=== PATIENT | male | born 1960 | race Caucasian/White ===

== ENCOUNTER 2022-07-31 12:53 | Observation (INO) ==
[2022-07-31] MEDS ORDERED: PEG 3000 GI LAVAGE 1 GALLON PO ONE ×2 (13:19→13:40)
[2022-07-31] MEDS ORDERED: Ondansetron 4 mg VIAL 2 MG/ML 2 ml VIAL IV ONE (13:20)
[2022-07-31 13:37] LABS: ABS Lymphocytes 0.9 10^3/ul (1.0-4.8); ABS Monocytes 0.6 10^3/ul (0-0.8); ABS Neutrophils 11.6 10^3/ul (1.5-7.7); Eosinophil % 0.3 %; Hematocrit 39 % (42-52); Lymphocyte % 6.9 %; Mean Corpuscular HGB Conc 34 g/dL (31-36); Mean Corpuscular Hemoglobin 29 pg (27-31); Mean Corpuscular Volume 86 fL (80-94); Mean Platelet Volume 7.3 fL (7.4-10.4); Platelet Count 254 10^3/uL (150-450); Red Blood Count 4.48 10^6 /uL (4.18-5.48); Red Cell Distribution Width 13 % (10-15); White Blood Count 13.2 10^3/uL (3.5-10.8)
[2022-07-31 14:12] LABS: Albumin 3.9 g/dL (3.2-5.2); Albumin/Globulin Ratio 2.4 (1-3); Calcium 8.6 mg/dL (8.6-10.3); Creatinine, Serum 0.85 mg/dL (0.67-1.17); Globulin 1.6 g/dL (2-4); Potassium 4.4 mmol/L (3.5-5.0); Total Bilirubin 0.9 mg/dL (0.2-1.0); Total Protein 5.5 g/dL (6.4-8.9); eGFR CKD-EPI 98.2 (>60)
[2022-07-31 14:24] LABS: INR 1.09 (0.88-1.18)
[2022-07-31] MEDS ORDERED: Lactated Ringers 1000 ml BAG 1,000 ML IV ONE ×2 (14:57→17:37)
[2022-07-31] MEDS ORDERED: Ondansetron 4 mg VIAL 2 MG/ML 2 ml VIAL IV PRN (16:20)
[2022-07-31] MEDS ORDERED: Midazolam 10 mg/10 ml VIAL 1 mg/ml 10 ml VIAL (10 mg) ONE (17:06)
[2022-07-31] MEDS ORDERED: fentaNYL 100 mcg/2 ml 50 MCG/ML VIAL ONE (17:07)
[2022-07-31] MEDS ORDERED: fentaNYL 100 mcg/2 ml 50 MCG/ML VIAL IV SLOW PU ONE (17:37)
[2022-07-31] MEDS ORDERED: Midazolam 10 mg/10 ml VIAL 1 mg/ml 10 ml VIAL (10 mg) IV SLOW PU ONE (17:37)
[2022-07-31] MEDS ORDERED: Pantoprazole VIAL 40 MG VIAL IV ONE (18:28)
[2022-07-31] MEDS ORDERED: Albuterol HFA INHALER 8 gm MDI INH PRN (18:55)
[2022-07-31] MEDS ORDERED: Pantoprazole 80 mg in NS BAG 80 MG/250 ML BAG IV SCH (19:00)
[2022-07-31] MEDS ORDERED: Iohexol 350 (CONTRAST) 500 ML MDV IV ONE (19:15)
[2022-07-31 20:29] LABS: Hematocrit 33 % (42-52); Hemoglobin 11.6 g/dL (14.0-18.0)
[2022-07-31] MEDS: Lactated Ringers 1000 ml BAG 1,000 ML IV SCH (23:12)
[2022-08-01 01:09] LABS: Hematocrit 32 % (42-52); Hemoglobin 11.2 g/dL (14.0-18.0)
[2022-08-01 06:48] LABS: ABS Eosinophils 0.1 10^3/ul (0-0.6); ABS Lymphocytes 1.3 10^3/ul (1.0-4.8); ABS Monocytes 0.8 10^3/ul (0-0.8); ABS Neutrophils 6.3 10^3/ul (1.5-7.7); Eosinophil % 1.3 %; Hematocrit 32 % (42-52); Hemoglobin 11.3 g/dL (14.0-18.0); Lymphocyte % 15.1 %; Mean Corpuscular HGB Conc 36 g/dL (31-36); Mean Corpuscular Hemoglobin 31 pg (27-31); Mean Corpuscular Volume 86 fL (80-94); Mean Platelet Volume 7.6 fL (7.4-10.4); Platelet Count 215 10^3/uL (150-450); Red Blood Count 3.69 10^6 /uL (4.18-5.48); Red Cell Distribution Width 14 % (10-15); White Blood Count 8.5 10^3/uL (3.5-10.8)
[2022-08-01 06:56] LABS: Calcium 8.5 mg/dL (8.6-10.3); Creatinine, Serum 0.82 mg/dL (0.67-1.17); Potassium 4.1 mmol/L (3.5-5.0); eGFR CKD-EPI 99.3 (>60)
[2022-08-01] MEDS: Lactated Ringers 1000 ml BAG 1,000 ML IV SCH (07:17)
[2022-08-01] MEDS ORDERED: Pantoprazole VIAL 40 MG VIAL IV SCH (09:00)
[2022-08-01 11:24] VITALS: BP 127/80
== END 2022-08-01 14:00 | disposition home or self-care (01) ==
LOC: ED 12:53 → EDHOLD 12:53 → SSU 14:00
PROVIDERS: ADMIT Internal Medicine; ATTEND Internal Medicine